=== PATIENT | female | born 1975 | race Caucasian/White ===

== ENCOUNTER 2018-12-02 08:54 | Outpatient (CLI) | payer BC ==
--- NOTE | 2018-12-02 10:50 | MRI ---
MRI BRAIN WITH AND WITHOUT CONTRAST: INDICATIONS: Facial paresthesias. Chronic migraine headaches. FINDINGS: There is normal size of the ventricular system without evidence of midline shift. No parenchymal hem orrhagic susceptibility is present. There is no acute territorial infarction. No significant signal abnormalities within the brain parenchyma. The visualized skull base flow voids are patent. No pat hologic intraaxial enhancement. Mucus retention cyst formation and mucosal thickening of the paranas al sinuses are seen. IMPRESSION: 1. No acute intracranial abnormalities. 2. Paranasal sinus mucosal thickening and retention cyst formation. POS: [facility]
== END 2018-12-02 08:55 | disposition home or self-care (01) ==
LOC: SCSMRI 08:54
PROVIDERS: ATTEND Psychiatry & Neurology Neurology
DX: R20.2 Paresthesia of skin (principal); G93.0 Cerebral cysts; J34.89 Other specified disorders of nose and nasal sinuses; J34.1 Cyst and mucocele of nose and nasal sinus
CPT/HCPCS: 70553

== ENCOUNTER 2019-11-26 13:49 | Emergency (ER) | payer BC, SELFPAY ==
[2019-11-26] MEDS ORDERED: Ketorolac Tromethamine 60 MG/2 ML VIAL ONE (14:55)
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
== END 2019-11-26 15:34 | disposition home or self-care (01) ==
LOC: ERS 13:49
DX: M54.5 Low back pain (principal); E03.9 Hypothyroidism, unspecified; F98.8 Other specified behavioral and emotional disorders with onset usually occurring in childhood and adolescence; M54.2 Cervicalgia; Z79.899 Other long term (current) drug therapy; V49.40XA Driver injured in collision with unspecified motor vehicles in traffic accident, initial encounter
CPT/HCPCS: 72100; 96372; J1885

== ENCOUNTER 2020-02-21 09:37 | Emergency (ER) | payer BC, SELFPAY ==
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
== END 2020-02-21 11:55 | disposition home or self-care (01) ==
LOC: ERS 09:37
DX: S70.02XA Contusion of left hip, initial encounter (principal); S46.001A Unspecified injury of muscle(s) and tendon(s) of the rotator cuff of right shoulder, initial encounter; F98.8 Other specified behavioral and emotional disorders with onset usually occurring in childhood and adolescence; E03.9 Hypothyroidism, unspecified; Z79.899 Other long term (current) drug therapy; W18.30XA Fall on same level, unspecified, initial encounter

== ENCOUNTER 2022-06-17 12:18 | Emergency (ER) | payer SELFPAY ==
[2022-06-17 13:13] LABS: #Eosinphils 0.3 thou/uL (0.0-0.7); #Lymphocytes 2.1 thou/uL (1.20-3.40); #Monocytes 0.4 thou/uL (0.11-0.59); #Neutrophils 4.8 thou/uL (1.40-6.50); %Basophils 0.4 % (0.0-1.0); %Eosinophils 3.5 % (0.0-10.0); %Lymphocytes 27.6 % (21.0-51.0); %Monocytes 4.7 % (0.0-10.0); %Neutrophils 63.8 % (42.0-75.0); Hemoglobin 14.8 g/dL (12.0-16.0); Mean Corpuscular HGB CONC 34.2 g/dL (32.0-36.0); Mean Corpuscular Hemoglobin 30.9 pg (27.0-31.0); Mean Corpuscular Volume 90.2 fL (78.0-98.0); Mean Platelet Volume 6.3 fL (7.4-10.4); Platelet Count 327 thou/uL (130-400); RBC Distribution Width 11.5 % (11.5-14.5); Red Blood Cell (RBC) Count 4.79 mill/uL (4.20-5.40); White Blood Cell (WBC) Count 7.4 thou/uL (4.8-10.8)
[2022-06-17 13:38] LABS: ALT (SGPT) 17 U/L (8-55); AST (SGOT) 17 U/L (5-34); Albumin 4.4 g/dL (3.5-5.0); Alkaline Phosphatase 68 U/L (40-110); Anion Gap 13 mmol/L (10-20); BUN (Urea Nitrogen) 10 mg/dL (7.0-18.7); Bilirubin, Total 1.5 mg/dL (0.2-1.2); Calc. Creatinine Clearance 0 mL/min (70-130); Calcium 9.8 mg/dL (7.8-10.44); Carbon Dioxide 22 mmol/L (22-29); Chloride 105 mmol/L (98-107); Estimated GFR 78; Globulin 3.2 g/dL (2.4-3.5); Glucose 91 mg/dL (70-105); Potassium 4.1 mmol/L (3.5-5.1); Protein, Total 7.6 g/dL (6.0-8.3); Sodium 136 mmol/L (136-145)
[2022-06-17] MEDS ORDERED: Albuterol 200 PUFF (6.7GM INHALER) ONE (14:49)
[2022-06-17 17:39] LABS: SARS-CoV-2 NAA Rapid Test Not Detected (NotDetected)
== END 2022-06-17 18:01 | disposition home or self-care (01) ==
LOC: ERS 12:18
DX: R06.00 Dyspnea, unspecified (principal); E03.9 Hypothyroidism, unspecified; Z20.822 Contact with and (suspected) exposure to COVID-19; Z79.899 Other long term (current) drug therapy
CPT/HCPCS: 36415; 71045; 80053; 84484; 85025; 85379; 93005; 94760